=== PATIENT | male | born 1960 | race African-American/Black ===

== ENCOUNTER 2020-12-18 13:52 | Outpatient (CLI) | payer BC ==
[2020-12-19 01:35] LABS: SARS-CoV-2 PCR by NAA Not Detected (NotDetected)
== END 2020-12-18 13:53 | disposition home or self-care (01) ==
LOC: CSHLAB 13:52
PROVIDERS: ATTEND Internal Medicine Pulmonary Disease
DX: Z20.822 Contact with and (suspected) exposure to COVID-19 (principal); J44.9 Chronic obstructive pulmonary disease, unspecified
CPT/HCPCS: 87635; U0003; U0005